=== PATIENT | female | born 1945 | race Caucasian/White ===

== ENCOUNTER → 2018-02-21 | Outpatient (CLI) | payer BC, MEDICARE ==
--- NOTE | 2018-02-22 10:49 | MM ---
Reason for exam: screening (asymptomatic). Last mammogram was performed 5 years and 9 months ago. History: Patient is postmenopausal. Benign right mammotome panel of the right breast, September 08, 2005. Took estrogen for 5 years beginning at age 52. Took progesterone for 5 years. Physical Findings: A clinical breast exam by your physician is recommended on an annual basis and results should be correlated with mammographic findings. MG 3D Screening Mammo W/Cad Bilateral CC and MLO view(s) were taken. Prior study comparison: May 15, 2012, bilateral digital screening mammo w/CAD. May 11, 2010, bilateral digital screening mammogram. There are scattered fibroglandular densities. Finding: There are typically benign dystrophic, grouped/clustered calcifications in the middle position of the right breast. Previous mammotome biopsy in the right breast. New finding and increase in number of calcifications since May 15, 2012. ASSESSMENT: Benign, BI-RAD 2 RECOMMENDATION: Routine screening mammogram of both breasts in 1 year.
== END | disposition home or self-care (01) ==
LOC: RADMAMWWP 11:04
PROVIDERS: ATTEND Family Medicine
DX: Z12.31 Encounter for screening mammogram for malignant neoplasm of breast (principal)
CPT/HCPCS: 77063; 77067

== ENCOUNTER 2018-12-01 02:59 | Emergency (ER) | payer MEDICARE ==
[2018-12-01 03:09] VITALS: TEMP 98.1
[2018-12-01] MEDS ORDERED: hydrALAZINE HCL 20 MG/ML 1 ML VIAL IVP STA (03:20)
--- NOTE | 2018-12-01 03:27 | ED ---
General Adult HPI - General Source: patient, RN notes reviewed Mode of arrival: ambulatory Limitations: no limitations <Hermilo Alexandra - Last Filed: 12/01/18 03:58> <Valentine Decker P - Last Filed: 12/01/18 21:23> - General Chief complaint: Recheck/Abnormal Lab/Rx Stated complaint: High Blood Pressure Time Seen by Provider: 12/01/18 03:10 - History of Present Illness Initial comments: This is a 73-year-old female presents emergency Department with chief complaint of hypertension. Patient states that she's had difficulty with blood pressure issues since her diagnosis of renal failure. Patient states that she was informed states that she was not feeling well and was found to have acute renal failure with a creatinine of 6 at that time. 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 Patient states that she was seen nephrology and was placed on labetalol 50 mg. Patient states that this did work for short period time but was increased to 100 mg daily. P atient states that this time she has taken metoprolol 100 mg multiple times daily symptoms for 3 or 4 times daily and states her blood pressure still elevated. She has no complaints of pain, shortness breath, nausea vomiting. Patient states that she does have an appointment on Tuesday with [facility] urology and nephrology. They did schedule her for CT of abdomen and pelvis with contrast though they state her creatinine has been elevating recently. Patient states that her creatinine was down to 1.2 prior to leaving [place] but has recently risen to 1.6 patient states she's had 2 sets of stents placed by urology. Patient states she also has a history of hypothyroidism. Patient is not taking any medications other than metoprolol for her blood pressure. (Hermilo Alexandra) - Related Data Allergies Allergy/AdvReac Type Severity Reaction Status Date / Time No Known Allergies Allergy Verified 12/01/18 03:09 Review of Systems ROS Other: All systems not noted in ROS Statement are negative. <Hermilo Alexandra - Last Filed: 12/01/18 03:58> ROS Other: All systems not noted in ROS Statement are negative. <Valentine Decker - Last Filed: 12/01/18 21:23> ROS Statement: Those systems with pertinent positive or pertinent negative responses have been documented in the HPI. Past Medical History Past Medical History: Hypertension Additional Past Medical History / Comment(s): RENAL FAILURE History of Any Multi-Drug Resistant Organisms: None Reported Additional Past Surgical History / Comment(s): KIDNEY URETER STENT. ANYERISM CAROTID 2009 Past Psychological History: No Psychological Hx Reported Smoking Status: Never smoker Past Alcohol Use History: None Reported Past Drug Use History: None Reported <Hermilo Alexandra M - Last Filed: 12/01/18 03:58> General Exam Limitations: no limitations General appearance: alert, in no apparent distress Head exam: Present: atraumatic, normocephalic, normal inspection Eye exam: Present: normal appearance, PERRL, EOMI. Absent: scleral icterus, conjunctival injection, periorbital swelling ENT exam: Present: normal exam, normal oropharynx, mucous membranes moist Neck exam: Present: normal inspection, full ROM. Absent: tenderness, meningismus, lymphadenopathy Respiratory exam: Present: normal lung sounds bilaterally. Absent: respiratory distress, wheezes, rales, rhonchi, stridor Cardiovascular Exam: Present: regular rate, normal rhythm, normal heart sounds. Absent: systolic murmur, diastolic murmur, rubs, gallop, clicks GI/Abdominal exam: Present: soft, normal bowel sounds. Absent: distended, tenderness, guarding, rebound, rigid Extremities exam: Present: pedal edema Neurological exam: Present: alert, oriented X3, CN II-XII intact Skin exam: Present: warm, dry, intact, normal color. Absent: rash <Hermilo Alexandra M - Last Filed: 12/01/18 03:58> Course Vital Signs 12/01/18 12/01/18 12/01/18 03:01 04:31 05:00 Temperature 98.1 F Pulse Rate 63 64 63 Respiratory 18 16 16 Rate Blood Pressure 201/102 173/97 185/100 O2 Sat by Pulse 97 96 98 Oximetry 12/01/18 12/01/18 06:03 06:31 Temperature Pulse Rate 54 L 61 Respiratory 20 16 Rate Blood Pressure 172/88 115/93 O2 Sat by Pulse 96 96 Oximetry EKG Findings - EKG Comments: EKG Findings:: EKG performed at 3:30 sinus bradycardia with rate of 58 VA 158 QRS 76 QT/ QTC 454/445 <Hermilo Alexandra M - Last Filed: 04/19/19 03:58> Medical Decision Making - Lab Data Result diagrams: 12/01/18 03:30 12/01/18 03:30 <Hermilo Alexandra - Last Filed: 12/01/18 03:58> - Lab Data Result diagrams: 12/01/18 03:30 12/01/18 03:30 <Valentine Decker - Last Filed: 12/01/18 21:23> - Medical Decision Making % And evaluated the patient. Her blood pressure proved only slightly, 0.1 mg of oral clonidine was ordered. Patient was then reevaluated and blood pressure is improving significantly. I contacted the patient's labs are provided with her. Patient is scheduled to see urology and nephrology at the [facility] next week at this time patient's feeling asymptomatic and is comfortable with the plan for discharge home with outpatient follow-up. (Valentine Decker) - Lab Data Lab Results 12/01/18 12/01/18 12/01/18 Range/Units 03:30 03:30 03:30 WBC 10.5 (3.8-10.6) k/uL RBC 3.77 L (3.80-5.40) m/uL Hgb 11.5 (11.4-16.0) gm/dL Hct 34.1 (34.0-46.0) % MCV 90.3 (80.0-100.0) fL MCH 30.4 (25.0-35.0) pg MCHC 33.7 (31.0-37.0) g/dL RDW 13.1 (11.5-15.5) % Plt Count 262 (150-450) k/uL Neutrophils % 74 % Lymphocytes % 16 % Monocytes % 6 % Eosinophils % 2 % Basophils % 1 % Neutrophils # 7.8 H (1.3-7.7) k/uL Lymphocytes # 1.7 (1.0-4.8) k/uL Monocytes # 0.7 (0-1.0) k/uL Eosinophils # 0.2 (0-0.7) k/uL Basophils # 0.1 (0-0.2) k/uL PT (9.0-12.0) sec INR (<1.2) APTT (22.0-30.0) sec Sodium 142 (137-145) mmol/L Potassium 4.6 (3.5-5.1) mmol/L Chloride 111 H (98-107) mmol/L Carbon Dioxide 22 (22-30) mmol/L Anion Gap 9 mmol/L BUN 41 H (7-17) mg/dL Creatinine 2.64 H (0.52-1.04) mg/dL Est GFR (CKD-EPI)AfAm 20 (>60 ml/min/1.73 sqM) Est GFR (CKD-EPI)NonAf 17 (>60 ml/min/1.73 sqM) Glucose 95 (74-99) mg/dL Calcium 9.1 (8.4-10.2) mg/dL Phosphorus 5.0 H (2.5-4.5) mg/dL Magnesium 1.8 (1.6-2.3) mg/dL Total Bilirubin 0.5 (0.2-1.3) mg/dL AST 32 (14-36) U/L ALT 56 H (9-52) U/L Alkaline Phosphatase 96 (38-126) U/L Troponin I (0.000-0.034) ng/mL NT-Pro-B Natriuret Pep 3230 pg/mL Total Protein 6.5 (6.3-8.2) g/dL Albumin 3.8 (3.5-5.0) g/dL 12/01/18 12/01/18 Range/Units 03:30 03:30 WBC (3.8-10.6) k/uL RBC (3.80-5.40) m/uL Hgb (11.4-16.0) gm/dL Hct (34.0-46.0) % MCV (80.0-100.0) fL MCH (25.0-35.0) pg MCHC (31.0-37.0) g/dL RDW (11.5-15.5) % Plt Count (150-450) k/uL Neutrophils % % Lymphocytes % % Monocytes % % Eosinophils % % Basophils % % Neutrophils # (1.3-7.7) k/uL Lymphocytes # (1.0-4.8) k/uL Monocytes # (0-1.0) k/uL Eosinophils # (0-0.7) k/uL Basophils # (0-0.2) k/uL PT 10.3 (9.0-12.0) sec INR 1.0 (<1.2) APTT 23.0 (22.0-30.0) sec Sodium (137-145) mmol/L Potassium (3.5-5.1) mmol/L Chloride (98-107) mmol/L Carbon Dioxide (22-30) mmol/L Anion Gap mmol/L BUN (7-17) mg/dL Creatinine (0.52-1.04) mg/dL Est GFR (CKD-EPI)AfAm (>60 ml/min/1.73 sqM) Est GFR (CKD-EPI)NonAf (>60 ml/min/1.73 sqM) Glucose (74-99) mg/dL Calcium (8.4-10.2) mg/dL Phosphorus (2.5-4.5) mg/dL Magnesium (1.6-2.3) mg/dL Total Bilirubin (0.2-1.3) mg/dL AST (14-36) U/L ALT (9-52) U/L Alkaline Phosphatase (38-126) U/L Troponin I <0.012 (0.000-0.034) ng/mL NT-Pro-B Natriuret Pep pg/mL Total Protein (6.3-8.2) g/dL Albumin (3.5-5.0) g/dL Disposition <Hermilo Alexandra - Last Filed: 12/01/18 03:58> Is patient prescribed a controlled substance at d/c from ED?: No <Valentine Decker - Last Filed: 12/01/18 21:23> Clinical Impression: Hypertension Disposition: HOME SELF-CARE Condition: Stable Instructions (If sedation given, give patient instructions): Hypertension (ED) Referrals: Hermilo Sanchez DO [Primary Care Provider] - 1-2 days
[2018-12-01 03:41] LABS: Basophils # (A) 0.1 k/uL (0-0.2); Basophils % (A) 1 %; Eosinophils # (A) 0.2 k/uL (0-0.7); Eosinophils % (A) 2 %; HCT 34.1 % (34.0-46.0); HGB 11.5 gm/dL (11.4-16.0); Lymphocytes # (A) 1.7 k/uL (1.0-4.8); Lymphocytes % (A) 16 %; MCH 30.4 pg (25.0-35.0); MCHC 33.7 g/dL (31.0-37.0); MCV 90.3 fL (80.0-100.0); Mean Platelet Volume 7.4; Monocytes # (A) 0.7 k/uL (0-1.0); Monocytes % (A) 6 %; Neutrophils # (A) 7.8 k/uL (1.3-7.7); Neutrophils % (A) 74 %; Platelet Count 262 k/uL (150-450); RBC 3.77 m/uL (3.80-5.40); RDW 13.1 % (11.5-15.5); WBC 10.5 k/uL (3.8-10.6)
[2018-12-01 03:55] LABS: Prothrombin Time 10.3 sec (9.0-12.0)
[2018-12-01 03:57] LABS: Albumin 3.8 g/dL (3.5-5.0); Calcium 9.1 mg/dL (8.4-10.2); Magnesium 1.8 mg/dL (1.6-2.3); Potassium 4.6 mmol/L (3.5-5.1); Total Bilirubin 0.5 mg/dL (0.2-1.3); Total Protein 6.5 g/dL (6.3-8.2)
[2018-12-01] MEDS ORDERED: SODIUM CHLORIDE 0.9% 500 ML 500 ML IV ONE (04:02)
[2018-12-01] MEDS ORDERED: cloNIDine HCL 0.1 MG TAB PO STA (05:04)
[2018-12-01 06:32] VITALS: BP 115/93; PULSE 61; RESP 16
== END 2018-12-01 06:51 | disposition home or self-care (01) ==
LOC: EC 02:59
DX: I12.9 Hypertensive chronic kidney disease with stage 1 through stage 4 chronic kidney disease, or unspecified chronic kidney disease (principal); N18.9 Chronic kidney disease, unspecified
CPT/HCPCS: 36415; 93005; 83880; 80053; 83735; 84100; 84484; 85025; 85610; 85730; 99283; 96374; 96361 ×2; J0360